=== PATIENT | female | born 1985 | race Caucasian/White ===

== ENCOUNTER → 2019-06-28 11:12 | Outpatient (CLI) | payer OTHER, SELFPAY ==
--- NOTE | 2019-06-28 | DI.MRI.S_ITS ---
PROCEDURE: MR LUMBAR SPINE WO CON INDICATIONS: RIGHT HIP PAIN TECHNIQUE: Noncontrast sagittal T1 spin echo and T2 fast echo, sagittal STIR, axial T1 and T2 fast spin echo through the lumbar spine. In cases with scoliosis, additional coronal T2 fast spin echo may be performed. COMPARISON: None. FINDINGS: Image quality: Excellent. Alignment and Curvature: No plain films are available for comparison, for numbering purposes. Thus, for the purposes of this examination, 5 lumbar type vertebral bodies will be presumed, as denoted on the montage panel. This should be confirmed and correlated with plain films, prior to any lumbar spinal intervention.There is normal bony alignment. Bone Marrow: Marrow is of normal overall signal. No acute vertebral body compression fractures. There is mild reactive signal within the endplates adjacent to the 5 S1 intervertebral disc. Spinal Cord: Conus medullaris terminates at the upper L2 level. Visualized cord demonstrates normal signal and size. Paraspinous Soft Tissues: No paravertebral masses. L1-L2: Normal appearance. L2-L3: Mild ligamentum flavum hypertrophy bilaterally. No significant canal, nor foraminal stenosis. L3-L4: Mild facet and ligamentum flavum hypertrophy. Mild canal stenosis. No foraminal stenosis. L4-L5: Mild facet hypertrophy bilaterally. No significant canal, nor foraminal stenosis. L5-S1: Mild disc height loss and desiccation. Mild diffuse disc bulge with small superimposed broad-based left paracentral posterior lateral protrusion. No significant canal stenosis. Mild left greater than right foraminal stenosis. IMPRESSION: 1. 5 lumbar type vertebral bodies were presumed for the current report. Plain films of the lumbar spine are recommended for confirmation, prior to any lumbar spinal intervention. 2. Multilevel degenerative disc and facet disease, as well as ligamentum flavum hypertrophy and epidural lipomatosis. 3. Mild multilevel canal and foraminal stenoses. No neural impingement. Dictated by: Adiel Case M.D. on 06/28/2019 at 13:16 Approved by: Adiel Case M.D. on 06/28/2019 at 15:00
--- NOTE | 2019-06-28 | DI.MRI.S_ITS ---
PROCEDURE: MR HIP RT WO CON INDICATIONS: RIGHT HIP PAIN TECHNIQUE: Noncontrast coronal T1 spin echo and STIR through the bony pelvis. Coronal and axial T2 fast spin echo with fat saturation, sagittal T1 spin echo, and oblique axial T2 fast spin echo with fat saturation through the hip. COMPARISON: [facility], , HIPBILAT 3TO4V W PEL IF PERFD, 12/02/2017, 11:09. FINDINGS: Image quality: Susceptibility artifacts are noted along lateral aspect of right hip joint, suggestive of prior hip surgery. Bones and joints: There is no gross marrow edema. No fracture or dislocation. Symmetric appearing mild to moderate bilateral hip joint osteoarthritis is seen with joint space narrowing. No intraosseous lesions or fractures. No avascular necrosis of the femoral heads. The visualized lower lumbar spine appears normally aligned. Tendons and ligaments: The gluteus medius and minimus tendons appear intact, without associated muscle atrophy. The nearby proximal iliotibial band also appears intact. The iliopsoas tendon appears intact, without adjacent bursal fluid collections or evidence for impingement syndrome. The origin of the hamstring tendon is intact at the ischial tuberosity, as well as the associated sacrotuberous ligament. The straight and reflected heads of the rectus femoris muscle origin appear intact, as well as the conjoint tendon. The ligamentum teres appears intact where visualized. Labrum and cartilage: There is suggestion of prior right hip labral tear. No obvious recurrent tear is noted in right hip joint. Thinning of the articulating cartilages in right femoral head is seen. The alpha angle of the femur is within normal limits at less than 55 degrees. Soft tissues: Visualized muscles demonstrate normal bulk and internal signal. Quadratus femoris muscle demonstrates no internal edema to suggest ischiofemoral impingement. The proximal sciatic neurovascular bundle appears normal adjacent to the hamstring tendons. No free pelvic fluid. Bladder wall thickness is normal. Genitourinary structures and bowel loops appear normal where visualized. IMPRESSION: 1. Findings suggestive of prior right hip labral repair. Post surgical changes are noted in this area with susceptibility artifact. No obvious recurrent right hip labral tear is seen in the absence of intra-articular contrast. 2. Symmetric appearing mild to moderate bilateral hip joint osteophytes. No fracture or dislocation. No marrow edema. No evidence of avascular necrosis of femoral heads. 3. No gross muscle or tendon signal abnormality is seen. Dictated by: Faisal Dobbs M.D. on 06/28/2019 at 17:01 Approved by: Faisal Dobbs M.D. on 06/28/2019 at 17:04
== END ==
PROVIDERS: PCP Internal Medicine Critical Care Medicine; Visit Provider Family Medicine
DX: M25.551 Pain in right hip (principal); S73.191S Other sprain of right hip, sequela; M51.37 Other intervertebral disc degeneration, lumbosacral region; M48.061 Spinal stenosis, lumbar region without neurogenic claudication; M48.07 Spinal stenosis, lumbosacral region; E88.2 Lipomatosis, not elsewhere classified
CPT/HCPCS: 72148; 73721

== ENCOUNTER → 2019-08-09 12:44 | Outpatient (CLI) | payer OTHER, SELFPAY ==
--- NOTE | 2019-08-09 | DI.RAD.S_ITS ---
PROCEDURE: FL JOINT INJECTION LARGE RT INDICATIONS: Other sprain of right hip, initial encounter TECHNIQUE: The indications, alternatives, benefits, risks, and complications of the procedure were explained to the patient. Written informed consent was obtained and placed in the chart. The patient was placed in an appropriate position on the fluoroscopy table, and a site was chosen for percutaneous access under fluoroscopic guidance. The site was prepped and draped in a sterile fashion. Local anesthetic was administered using a 1% lidocaine solution. A hypodermic or spinal needle was then used to access the symptomatic joint. Intra-articular location of the needle tip was confirmed by injecting a small amount of contrast, followed by steroid administration. The needle was then withdrawn, and a bandage applied to the puncture site. FINDINGS: Joint injected: Right hip Medications injected: 1 mL of 40 mg/mL Kenalog and 3 cc 0.5% Ropivacaine mixture. Patient's pain before injection: 4 out of 10. Patient's pain after injection: 4 out of 10. Complications: None. IMPRESSION: Successful fluoroscopically guided administration of steroid and anaesthetic solution into the right hip joint. Dictated by: Yanick Bella M.D. on 08/09/2019 at 14:52 Approved by: Yanick Bella M.D. on 08/09/2019 at 14:53
== END ==
PROVIDERS: PCP Family Medicine; Visit Provider Orthopaedic Surgery
DX: S73.191A Other sprain of right hip, initial encounter (principal); X58.XXXA Exposure to other specified factors, initial encounter
CPT/HCPCS: 20610; 77002

== ENCOUNTER → 2019-09-04 11:07 | Outpatient (CLI) | payer OTHER, SELFPAY ==
--- NOTE | 2019-09-04 | DI.RAD.S_ITS ---
PROCEDURE: FL HIP INJECTION MR/CT RT INDICATIONS: Right hip pain TECHNIQUE: The indications, alternatives, benefits, risks, and complications of the procedure were explained to the patient. Written informed consent was obtained and placed in the chart. The hip was examined fluoroscopically with the legs fixed in slight internal rotation, and a site for needle placement chosen for entry into the hip joint from an anterior approach. Care was taken to locate the common femoral artery and vein beforehand. The skin was prepped and draped in a sterile fashion, and 1% Lidocaine infiltrated from skin down to joint capsule. A spinal needle was inserted into the joint, and a small amount of iodinated contrast media injected to confirm intra-articular placement of the needle tip. This was followed by approximately 10 mL dilute solution of a gadolinium containing MR contrast agent. The needle was removed and a dressing was applied. The patient was given postprocedural instructions and sent to the MR suite for imaging. FINDINGS: A single fluoroscopic spot image demonstrates intra-articular location of injected iodinated contrast. IMPRESSION: Successful fluoroscopically guided administration of dilute Gadolinium solution into the hip joint for MR arthrogram. Dictated by: Yfn Leo M.D. on 09/04/2019 at 12:57 Approved by: Yfn Leo M.D. on 09/04/2019 at 12:58
--- NOTE | 2019-09-04 | DI.MRI.S_ITS ---
PROCEDURE: MR HIP RT W CON INDICATIONS: Right hip pain TECHNIQUE: After the administration of 10 mL of dilute intra-articular Gadolinium contrast, coronal STIR of the bony pelvis; coronal and oblique axial T1 spin echo with fat saturation, axial T2 fast spin echo with fat saturation, sagittal T1 spin echo with and without fat saturation of the involved hip. COMPARISON: [facility], MR, MR HIP RT WO CON, 06/28/2019, 11:40. FINDINGS: Image quality: Diagnostic. Bones and joints: No acute fracture, dislocation, suspicious osseous lesion, or evidence of avascular necrosis is identified involving the osseous structures of the right hip. There is laterally ligation of the superior acetabulum. Postoperative changes overlying this region are present. The alpha angle of the right femoral head measures less than 55?. There are mild degenerative changes of the right hip with small developing marginal osteophytes and heterogeneity of the hyaline articular cartilage. There is adequate distention of the right hip joint with the injected contrast. No loose intra-articular joint bodies are appreciated. The remainder of the imaged osseous structures of the included bony pelvis demonstrate no acute fractures or suspicious osseous lesions. Labrum: The right acetabular labrum is not well-seen related to susceptibility artifact, from prior presumed labral repair. However, no displaced labral tear is evident. There are no large paralabral cysts. Tendons and ligaments: The distal right gluteus medius and gluteus minimus tendons are intact and otherwise grossly unremarkable. The distal iliopsoas and proximal hamstrings tendons are within normal limits. The ligamentum teres appears intact where visualized. Soft tissues: Visualized muscles demonstrate normal bulk and internal signal. Quadratus femoris muscle demonstrates no internal edema to suggest ischiofemoral impingement. The proximal sciatic neurovascular bundle appears normal adjacent to the hamstring tendons. No free pelvic fluid. Bladder wall thickness is normal. Genitourinary structures and bowel loops appear normal where visualized. IMPRESSION: 1. No definite recurrent tear of the right acetabular labrum. 2. Lateral elongation of the superior right acetabulum may result in pincer-type femoral acetabular impingement clinical correlation is recommended. 3. No loose intra-articular joint bodies of the right hip joint. Dictated by: Rajendra Sunshine M.D. on 09/04/2019 at 13:40 Approved by: Rajendra Sunshine M.D. on 09/04/2019 at 14:02
== END ==
PROVIDERS: PCP Family Medicine; Visit Provider Orthopaedic Surgery
DX: M25.551 Pain in right hip (principal)
CPT/HCPCS: 27093; 73722; 77002